=== PATIENT | male | born 1975 | race Caucasian/White ===

== ENCOUNTER 2018-11-23 10:27 | Observation (INO) | payer OTHER, SELFPAY ==
[2018-11-23 10:27] VITALS: BP 142/83; PULSE 72; RESP 16; TEMP 36.3; O2SAT 95; BMI 28.0
--- NOTE | 2018-11-23 10:43 | EKG12_ITS ---
Test Reason : DIZZINESS Blood Pressure : / mmHG Vent. Rate : 062 BPM Atrial Rate : 062 BPM P-R Int : 188 ms QRS Dur : 094 ms QT Int : 392 ms P-R-T Axes : 032 030 011 degrees QTc Int : 397 ms Normal sinus rhythm Normal ECG Confirmed by ANI VIDALES, YADI ([id number]), scientific editor MATILDA SOW ([id number]) on 11/25/2018 9:16:07 AM Referred By: VICKY Confirmed By:YADI LAW MD
--- NOTE | 2018-11-23 10:43 | CT_ITS ---
STUDY: CT BRAIN WITHOUT CONTRAST REASON FOR EXAM: Male, 42 years old. HEADACHE,HTN AND CONFUSION. RADIATION DOSAGE (If Supplied By Facility): CTDIvol = ( 44.99 ) mGy, DLP = ( 796.11 ) mGycm TECHNIQUE: Transaxial CT imaging of the brain was performed without administration of intravenous contrast material. Individualized dose optimization techniques were used for this CT. COMPARISON: No relevant priors. FINDINGS: Normal soft tissue structures. Normal calvarium. Normal size ventricles and extra-axial spaces for the patient's age. Normal white matter tracts of the cerebral hemispheres. Normal basal ganglia and thalami. Normal brainstem. Normal cerebellum. There is no intracranial hemorrhage. There are no findings of an acute ischemic infarction. Right maxillary mucous retention cyst is noted. CT/Brain/Head without Contrast IMPRESSION: No acute intracranial abnormality. Electronically Signed: Raulito Selby MD at 12:21 EDT Tel , Service support ,
--- NOTE | 2018-11-23 10:43 | RAD_ITS ---
STUDY: X-RAY CHEST REASON FOR EXAM: Male, 42 years old. Chest pain. TECHNIQUE: Single AP portable view of the chest. COMPARISON: None. FINDINGS: The lungs are clear and expanded. There is no demonstrated pleural abnormality. Normal size heart. Normal mediastinum and sury. Normal visualized pulmonary arteries. Normal visualized aortic arch and descending thoracic aorta. Normal visualized thoracic spine. Normal visualized ribs, clavicles, and shoulders. There is no demonstrated abnormality of the visualized soft tissue structures of the upper abdomen. RAD/Chest 1 View (Portable) IMPRESSION: Normal x-ray examination of the chest. Electronically Signed: Kris Cali, at 11:13 EDT , Service support ,
--- NOTE | 2018-11-23 10:47 | NURSING ---
NO OLD EKGS
[2018-11-23 11:35] LABS: Absolute Lymphocyte Count 1.22 X10^3/ul (0.83-4.51); Absolute Neutrophil Count 12.3 X10^3/uL (2.0-7.7); Basophil# 0.04 X10^3/uL; Basophil% 0.3 % (0-1); Eosinophil# 0.01 X10^3/uL; Eosinophils% 0.1 % (0-5); Hematocrit 44.6 % (40-54); Hemoglobin 14.5 g/dl (13.0-16.5); Lymphocyte # 1.22 X10^3/ul (4.0); Lymphocyte % 8.6 % (19-41); Mean Corp Hgb Conc 32.5 g/gl (32-36); Mean Corpuscular Hgb 28.9 pg (27.0-32.0); Mean Corpuscular Volume 88.8 fL (80-94); Mean Platelet Vol. 10.9 fl (6.2-12.0); Monocyte# 0.61 X10^3/uL; Monocyte% 4.3 % (0-10); Neutrophil # 12.26 X10^3/uL (2.7-7.7); Neutrophil % 86.3 % (47-70); Platelet Count 244 K/mm3 (150-450); RBC Distribution Width CV 13.8 % (11.6-14.6); RBC Distribution Width SD 44.8 fl (35.1-43.9); Red Blood Count 5.02 M/mm3 (4.6-6.2); White Blood Count 14.2 K/mm3 (4.4-11.0)
[2018-11-23] MEDS: 0.9% Normal Saline 1,000 ML 150 ML IV (11:35)
[2018-11-23 11:37] LABS: POSITIVE COUNT NO; POSITIVE DIFFERENTIAL NO; POSITIVE MORPHOLOGY NO
[2018-11-23 11:50] LABS: Anion Gap 9 (5-15); BUN 16 mg/dL (7-18); BUN/Creat Ratio 16.7 RATIO (10-20); Calcium,Total 8.9 mg/dL (8.5-10.1); Chloride 107 mmol/L (98-107); Creatinine, Serum 0.96 mg/dL (0.70-1.30); EST Glomerular Filtration Rate 91 mL/min (>60); Est Glom Filt Rate - Afr Amer 110 mL/min (>60); Estimated Creatinine Clearance 100.24 ml/min; Glucose 120 mg/dL (74-106); Potassium 4.5 mmol/L (3.5-5.1); Sodium Level 142 mmol/L (136-145)
--- NOTE | 2018-11-23 12:50 | ED.VISSUMM ---
- ER Visit Summary Date of Service: 11/23/18 Chief Complaint: [Hypertension and chest pain] History of Present Illness: The patient is a 42 M [presents the emergency department complaint of elevated blood pressure in the last 3 or 4 days. Patient states his systolic has been over 200 at home. Patient was seen by nurse practitioner in primary care physician's office today and referred to the emergency department. Patient describes chest tightness at times radiating into the shoulder. He denies any significant shortness of breath. He denies any diaphoresis or nausea. Patient has been under increased stress of late and is currently in the court custody hearing for his granddaughter. Patient does feel somewhat shaky. Complains of a headache. Patient states that he has daily headaches and takes aspirin for them. Patient is taken several aspirin today. He describes his chest pressure is a 3 or 4 out of 10 currently. Patient has significant family history of heart disease and that his father had an MA in his late 30s.] Physical Examination: [HEENT-PERRLA, EOMI. Cranial nerves II through XII grossly intact. TMs clear. Mucous membranes moist. No adenopathy. Cardiovascular-regular rate and rhythm without murmur or ectopy Lungs-clear to auscultation, chest wall stable without crepitus or subcu emphysema Abdomen-normoactive bowel sounds, soft, nontender, no rebound or rigidity, no peritoneal signs. Extremities-intact ?4, normal range of motion, normal pulses, atraumatic] Test Results: [EKG obtained arrival shows sinus rhythm with a ventricular rate of 62 bpm with no acute I segment changes. CBC with differential showed a white count of 14.2, hemoglobin 14, hematocrit 44, placed 244. Chemistries unremarkable. Troponin is less than 0.015. Chest x-ray was normal. CT scan of the brain without contrast was normal.] Emergency Department Course and Treatment: [Patient received normal saline he had already taken aspirin at home. Initiate ordered some Ativan but patient refused. I did order sublingual nitro which is currently pending being given by nurse.] Treatment Plan: [Admit for further workup and evaluation of his chest discomfort and hypertension.] Disposition: [Admit] Impression: [Chest pain-rule out acute coronary syndrome Hypertension] This note was generated with [employer] software. It may contain incorrect words, spelling, and punctuation that were not noted in review of the chart prior to signing ED Disposition - Plan for ED Patient: Referrals: Kalia Frias MD [Primary Care Provider] -
--- NOTE | 2018-11-23 12:53 | ED.DCSUM_ITS ---
- ER Visit Summary Date of Service: 11/23/18 Chief Complaint: [Hypertension and chest pain] History of Present Illness: The patient is a 42 M [presents the emergency department complaint of elevated blood pressure in the last 3 or 4 days. Patient states his systolic has been over 200 at home. Patient was seen by nurse practitioner in primary care physician's office today and referred to the emergency department. Patient describes chest tightness at times radiating into the shoulder. He denies any significant shortness of breath. He denies any diaphoresis or nausea. Patient has been under increased stress of late and is currently in the court custody hearing for his granddaughter. Patient does feel somewhat shaky. Complains of a headache. Patient states that he has daily headaches and takes aspirin for them. Patient is taken several aspirin today. He describes his chest pressure is a 3 or 4 out of 10 currently. Patient has significant family history of heart disease and that his father had an AL in his late 30s.] Physical Examination: [HEENT-PERRLA, EOMI. Cranial nerves II through XII grossly intact. TMs clear. Mucous membranes moist. No adenopathy. Cardiovascular-regular rate and rhythm without murmur or ectopy Lungs-clear to auscultation, chest wall stable without crepitus or subcu emphysema Abdomen-normoactive bowel sounds, soft, nontender, no rebound or rigidity, no peritoneal signs. Extremities-intact ?4, normal range of motion, normal pulses, atraumatic] Test Results: [EKG obtained arrival shows sinus rhythm with a ventricular rate of 62 bpm with no acute I segment changes. CBC with differential showed a white count of 14.2, hemoglobin 14, hematocrit 44, placed 244. Chemistries unremarkable. Troponin is less than 0.015. Chest x-ray was normal. CT scan of the brain without contrast was normal.] Emergency Department Course and Treatment: [Patient received normal saline he had already taken aspirin at home. Initiate ordered some Ativan but patient refused. I did order sublingual nitro which is currently pending being given by nurse.] Treatment Plan: [Admit for further workup and evaluation of his chest discomfort and hypertension.] Disposition: [Admit] Impression: [Chest pain-rule out acute coronary syndrome Hypertension] This note was generated with [employer] software. It may contain incorrect words, spelling, and punctuation that were not noted in review of the chart prior to signing ED Disposition - Plan for ED Patient: Referrals: Kalia Frias MD [Primary Care Provider] -
--- NOTE | 2018-11-23 13:00 | NURSING ---
MAYRAU OBS GUNNAR PATINO
[2018-11-23 13:46] VITALS: PULSE 81; RESP 20; O2SAT 94
[2018-11-23 15:28] VITALS: BMI 27.8
[2018-11-23 15:29] VITALS: BMI 27.8
[2018-11-23 15:31] VITALS: BP 148/80; PULSE 74; RESP 16; TEMP 37.2; O2SAT 93
--- NOTE | 2018-11-23 15:36 | PCM.HP.STD ---
Problem List (1) HTN (hypertension) Status: Chronic (2) Asthma Status: Chronic History of Present Illness Date of Admission: 11/23/18 Chief Complaint: Chest pain. The patient is a 42 year old M who presents to the Emergency Room due to chest pain. He reports chest pain began this morning and describes a chest tightness across his chest and into his left shoulder. Denies other pain radiation. Denies associated shortness of breath. Denies nausea. Complains of diaphoresis. He reports chest pain continued intermittently for approximately 2 hours. Denies history of heart disease or prior stress test/cardiac workup. He does report his father has a history of heart disease including heart attack and stents. He has a past medical history of asthma, hypertension. He does report he has been under increased stress recently due to family issues. Past Medical History Past Medical History (Chronic Problems): Chronic Problems HTN (hypertension) (Chronic) Asthma (Chronic) Allergies Iodinated Contrast- Oral and IV Dye [DYEE] Allergy (Verified 11/23/18 10:29) Anaphylaxis Home Medications: Ambulatory Orders Medication Instructions Recorded Amlodipine [Norvasc] 10 mg PO DAILY 12/31/15 Montelukast [Singulair] 10 mg PO DAILY PRN 01/10/16 Omeprazole [Prilosec] 10 mg PO DAILY 01/10/16 Albuterol IH (ProAir) [Proair Hfa] 1 puff INHALATION PRN PRN 11/23/18 Cetirizine HCl [Zyrtec] 10 mg PO DAILY 11/23/18 Lisinopril 20 mg PO DAILY 11/23/18 Surgical History: - - Left foot surgery, deviated septum repair. Psychiatric History: No pertinent psych hx Lives: Spouse/ Significant Other Smoking Status: Never smoker Tobacco Use: Non-smoker Alcohol: Occasional Drugs: None - *Family History Paternal History Items: Heart Disease Maternal History Items: - - Denies known maternal cardiac history medical history./ Review of Systems Constitutional: Denies: Chills, Fever, Weight Change HEENT: Denies: Head Aches, Sinus Congestion, Sinus Drainage Cardiovascular: Reports: Chest Pain Respiratory: Denies: Cough, Shortness of breath at rest, Sputum production Gastrointestinal: Denies: Abdominal Pain, Nausea, Vomiting Genitourinary: Denies: Dysuria Musculoskeletal: Denies: Joint Pain, Joint Tenderness Skin: Denies: Rash, Wounds Neurological: Denies: Numbness, Tingling, Focal weakness Psychiatric: Denies: Anxiety, Depression, Homicidal Ideations, Suicidal Ideations Hematologic/ Lymphatic: Denies: Easy Bruising, Easy Bleeding VTE Information - Inpt Only VTE Present on Admission: No VTE Mechan Device Prophylaxis: None Reason prophylaxis not ordered:: Treatment Not Indicated - Physical Exam General: Alert, Oriented x3, Cooperative HEENT: Atraumatic, PERRLA, EOMI, Normocephalic Neck: Supple, No JVD, Negative Carotid Bruits Lungs: Clear to auscultation, Normal air movement Cardiovascular: Regular rate, Regular Rhythm, Normal S1, Normal S2, No murmurs Abdomen: Bowel Sounds Present, Soft, Non Tender, Non-Distended Extremities: No clubbing, No cyanosis, No edema, Capillary Refill Less than 3 Seconds Skin: No rashes, No breakdown Musculoskeletal: No Tenderness to Palpation of Joints or Extremities Neurological: Cranial nerves II-XII grossly intact, Neuro grossly intact Psych/Mental Status: Normal Affect, Appropriate Vital Signs Temp Pulse Resp BP Pulse Ox 98.9 F 74 16 148/80 H 93 11/23/18 15:31 11/23/18 15:31 11/23/18 15:31 11/23/18 15:31 11/23/18 15:31 Oxygen Delivery Method Room Air Weight: 188 lb 7.924 oz Body Mass Index (BMI) 27.8 Laboratory Tests Past 24 Hrs 11/23/18 11/23/18 11/23/18 11:15 11:15 14:55 WBC 14.2 H RBC 5.02 Hgb 14.5 Hct 44.6 MCV 88.8 MCH 28.9 MCHC 32.5 RDW 13.8 RDW Differential 44.8 H Plt Count 244 MPV 10.9 Immature Gran % (Auto) 0.400 Neut % (Auto) 86.3 H Lymph % (Auto) 8.6 L Alfalfa % (Auto) 4.3 Eos % (Auto) 0.1 Baso % (Auto) 0.3 Absolute Neuts (auto) 12.3 H Absolute Lymphs (auto) 1.22 Total Counted Not Reportable Sodium 142 Potassium 4.5 Chloride 107 Carbon Dioxide 26.0 Anion Gap 9 BUN 16 Creatinine 0.96 Estim Creat Clear Calc 100.24 Est GFR (MDRD) Af Amer 110 Est GFR (MDRD) Non-Af 91 BUN/Creatinine Ratio 16.7 Glucose 120 H Calcium 8.9 Troponin I < 0.015 < 0.015 Assessment/Plan 1. Chest pain, rule out ACS-EKG without ST-T changes. Troponin negative x2. Trend enzymes. Stress test in a.m. 2. Hypertension-stable, continue home lisinopril, amlodipine regimen. 3. Mild intermittent asthma-no acute exacerbation. 4. GERD- continue PPI. DVT prophylaxis-not indicated, low risk. This patient was seen by SARAH Orourke under the supervision of Dr. Hawley.
[2018-11-23 18:21] VITALS: PULSE 82
[2018-11-23 21:30] VITALS: BP 130/77; PULSE 65; RESP 16; TEMP 36.7; O2SAT 95
[2018-11-23 22:00] VITALS: BP 130/77; PULSE 65; PULSE 68; RESP 16; TEMP 36.7; O2SAT 95
[2018-11-24] VITALS (11 sets, daily range): BP systolic 118–139; BP diastolic 68–82; PULSE 57–88; RESP 16–18; TEMP 36.6–36.8; O2SAT 93–97
--- NOTE | 2018-11-24 01:54 | EKG12_ITS ---
Test Reason : Blood Pressure : / mmHG Vent. Rate : 062 BPM Atrial Rate : 062 BPM P-R Int : 200 ms QRS Dur : 092 ms QT Int : 398 ms P-R-T Axes : 061 048 008 degrees QTc Int : 403 ms Normal sinus rhythm with sinus arrhythmia Normal ECG When compared with ECG of 23-NOV-2018 15:32, MANUAL COMPARISON REQUIRED, DATA IS UNCONFIRMED Confirmed by ANI VIDALES, YADI ([id number]), associate entertainment editor MATILDA SOW ([id number]) on 11/25/2018 9:40:38 AM Referred By: Confirmed By:YADI LAW MD
[2018-11-24] MEDS: Lisinopril 20 MG Tablet PO (06:17)
[2018-11-24 06:22] LABS: Absolute Lymphocyte Count 2.02 X10^3/ul (0.83-4.51); Absolute Neutrophil Count 5.8 X10^3/uL (2.0-7.7); Basophil# 0.02 X10^3/uL; Basophil% 0.2 % (0-1); Eosinophil# 0.08 X10^3/uL; Eosinophils% 0.9 % (0-5); Hematocrit 42.7 % (40-54); Hemoglobin 13.8 g/dl (13.0-16.5); Lymphocyte # 2.02 X10^3/ul (4.0); Lymphocyte % 22.9 % (19-41); Mean Corp Hgb Conc 32.3 g/gl (32-36); Mean Corpuscular Hgb 28.3 pg (27.0-32.0); Mean Corpuscular Volume 87.5 fL (80-94); Mean Platelet Vol. 11.1 fl (6.2-12.0); Monocyte# 0.87 X10^3/uL; Monocyte% 9.8 % (0-10); Neutrophil # 5.82 X10^3/uL (2.7-7.7); Neutrophil % 65.9 % (47-70); Platelet Count 237 K/mm3 (150-450); RBC Distribution Width CV 13.8 % (11.6-14.6); RBC Distribution Width SD 43.9 fl (35.1-43.9); Red Blood Count 4.88 M/mm3 (4.6-6.2); White Blood Count 8.8 K/mm3 (4.4-11.0)
[2018-11-24 06:24] LABS: POSITIVE COUNT NO; POSITIVE DIFFERENTIAL NO; POSITIVE MORPHOLOGY NO
[2018-11-24 06:31] LABS: Prothrombin Time (Protime)PT. 13.4 SECONDS (11.7-14.9)
[2018-11-24 06:36] LABS: Partial Thromboplast Time 29.7 Seconds (24.1-36.2)
[2018-11-24 06:44] LABS: Anion Gap 5 (5-15); BUN 16 mg/dL (7-18); BUN/Creat Ratio 16.7 RATIO (10-20); Calcium,Total 8.9 mg/dL (8.5-10.1); Chloride 108 mmol/L (98-107); Creatinine, Serum 0.96 mg/dL (0.70-1.30); EST Glomerular Filtration Rate 91 mL/min (>60); Est Glom Filt Rate - Afr Amer 111 mL/min (>60); Estimated Creatinine Clearance 100.24 ml/min; Glucose 101 mg/dL (74-106); Potassium 3.7 mmol/L (3.5-5.1); Sodium Level 139 mmol/L (136-145)
--- NOTE | 2018-11-24 11:20 | DCINST_ITS ---
- Discharge Diagnoses Current Active Problems: Current Active and Chronic Problems HTN (hypertension) (Chronic) Asthma (Chronic) You will use the following diet at home:: Cardiac Discharge Activity: Return to Normal Activity Call your doctor if you observe: Shortness of breath, Dizziness, Fainting spells, Chest pain Allergies/Adverse Reactions: Allergies Iodinated Contrast- Oral and IV Dye [DYEE] Allergy (Verified 11/23/18 10:29) Anaphylaxis Medications to take at Discharge Amlodipine [Norvasc] 10 mg PO DAILY 12/31/15 Montelukast [Singulair] 10 mg PO DAILY 01/10/16 Omeprazole [Prilosec] 10 mg PO DAILY 01/10/16 Albuterol IH (ProAir) [Proair Hfa] 1 puff INHALATION PRN PRN 11/23/18 Cetirizine HCl [Zyrtec] 10 mg PO DAILY 11/23/18 Lisinopril 20 mg PO DAILY 11/23/18 Primary Care Physician: Kalia Frias MD [Primary Care Provider] - Please follow up with your Primary Care Physician in: 1 Week Test Results: Test results from this visit will be discussed in further detail at your follow- up appointment, if applicable. Proposed Discharge Date: 11/24/18
[2018-11-24] MEDS: Pantoprazole Sodium 20 MG Tablet PO (12:19)
[2018-11-24] MEDS: amLODIPine 10 MG Tablet PO (12:19)
--- NOTE | 2018-11-24 12:19 | NURSING ---
pt returned from stress lab at this time
--- NOTE | 2018-11-24 12:25 | MRI_ITS ---
We are attempting to reach Colt Hawley to discuss findings. An addendum with communication details will be sent when the communication is complete. STUDY: MRI BRAIN WITHOUT CONTRAST REASON FOR EXAM: Male, 42 years old. Word finding difficulty, facial droop TECHNIQUE: Standardized multiplanar fat and water weighted pulse sequences were obtained. COMPARISON: CT head 11/23/2018. FINDINGS: There is a faint region of restricted diffusion in the medial left temporal lobe with corresponding mild FLAIR signal hyperintensity. Normal size of the ventricles and extra-axial spaces for the patient's age. Normal white matter tracts of the supratentorial brain. Normal bilateral basal ganglia. Normal thalami. There is no extra-axial fluid accumulation. Normal flow voids within the major intracranial circulation suggesting patency by spin echo criteria. Normal sella turcica, pituitary gland, infundibular stalk, optic chiasm and hypothalamus. Normal tectal plate and pineal gland. Normal midbrain, letitia and medulla. Normal cerebellum. Normal basal cisterns. Normal bilateral temporal bones. Normal bilateral internal auditory canals. No demonstrated orbital abnormality, within the constraints of a routine brain study. There is a 2.3 x 1.6 cm right maxillary sinus retention cyst and mild right maxillary mucosal thickening.. Normal calvarium and skull base. Normal visualized soft tissue structures. Normal visualized upper cervical spine. MRI/Brain without Contrast IMPRESSION: A faint region of restricted diffusion in the medial left temporal lobe may represent small late acute infarct corresponding to the left BRONZER territory. Electronically Signed: Vicki Griselda, at 14:27 EDT Tel , Service support ,
--- NOTE | 2018-11-24 14:49 | PCM.PROGNOTE ---
Subjective: Patient seen and examined. Denies further chest pain. Patient reports his brain feels foggy. He reports prior to admission he had lower lip tingling and difficulty getting his words out. He did not mention this during previous assessments. - Physical Exam General: Alert, Oriented x3, Cooperative HEENT: Atraumatic, PERRLA, EOMI, Normocephalic Neck: Supple, No JVD, Negative Carotid Bruits Lungs: Clear to auscultation, Normal air movement Cardiovascular: Regular rate, Regular Rhythm, Normal S1, Normal S2, No murmurs Abdomen: Bowel Sounds Present, Soft, Non Tender, Non-Distended Extremities: No clubbing, No cyanosis, No edema, Capillary Refill Less than 3 Seconds Skin: No rashes, No breakdown Musculoskeletal: No Tenderness to Palpation of Joints or Extremities Neurological: Cranial nerves II-XII grossly intact, Neuro grossly intact Psych/Mental Status: Normal Affect, Appropriate Vital Signs Temp Pulse Resp BP Pulse Ox 98 F 86 18 118/78 96 11/24/18 12:17 11/24/18 12:17 11/24/18 12:17 11/24/18 12:17 11/24/18 12:17 Oxygen Delivery Method Room Air Weight: 188 lb 7.924 oz Body Mass Index (BMI) 27.8 Intake and Output for Last 24 Hours 11/22/18 11/23/18 11/24/18 23:59 23:59 23:59 Intake Total 240 / 240 240 / 240 Balance 240 / 240 240 / 240 Laboratory Tests Past 24 Hrs 11/23/18 11/23/18 11/24/18 14:55 17:28 06:02 WBC 8.8 RBC 4.88 Hgb 13.8 Hct 42.7 MCV 87.5 MCH 28.3 MCHC 32.3 RDW 13.8 RDW Differential 43.9 Plt Count 237 MPV 11.1 Immature Gran % (Auto) 0.300 Neut % (Auto) 65.9 Lymph % (Auto) 22.9 [place] % (Auto) 9.8 Eos % (Auto) 0.9 Baso % (Auto) 0.2 Absolute Neuts (auto) 5.8 Absolute Lymphs (auto) 2.02 Total Counted Not Reportable PT INR APTT Sodium Potassium Chloride Carbon Dioxide Anion Gap BUN Creatinine Estim Creat Clear Calc Est GFR (MDRD) Af Amer Est GFR (MDRD) Non-Af BUN/Creatinine Ratio Glucose Calcium Troponin I < 0.015 < 0.015 11/24/18 11/24/18 06:02 06:02 WBC RBC Hgb Hct MCV MCH MCHC RDW RDW Differential Plt Count MPV Immature Gran % (Auto) Neut % (Auto) Lymph % (Auto) [place] % (Auto) Eos % (Auto) Baso % (Auto) Absolute Neuts (auto) Absolute Lymphs (auto) Total Counted PT 13.4 INR 1.0 APTT 29.7 Sodium 139 Potassium 3.7 Chloride 108 H Carbon Dioxide 26.0 Anion Gap 5 BUN 16 Creatinine 0.96 Estim Creat Clear Calc 100.24 Est GFR (MDRD) Af Amer 111 Est GFR (MDRD) Non-Af 91 BUN/Creatinine Ratio 16.7 Glucose 101 Calcium 8.9 Troponin I Medical Necessity - Tobacco Use Smoking Status: Never smoker Tobacco Use: Non-smoker Assessment/Plan 1. Chest pain, ACS ruled out-EKG without ST-T changes. Troponin negative. Patient underwent nuclear stress test which was negative for ischemia. 2. R/O CVA-patient prior to discharge reported brain fog, difficulty getting his words out and lower lip tingling. She reports these resolved prior to admission however still feels like his head does not feel right. Brain CT negative. 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 Neurology consulted. Initiate stroke measures pending neuro eval. 3. Hypertension-stable, continue home lisinopril, amlodipine regimen. 4. Mild intermittent asthma-no acute exacerbation. 5. GERD- continue PPI. DVT prophylaxis-not indicated, low risk. This patient was seen by SARAH Orourke under the supervision of Dr. Hawley.
--- NOTE | 2018-11-24 16:06 | CON.PCM_ITS ---
Reason for Consult Date of Consultation: 11/24/18 Reason for Consultation: right sided shaking History of Present Illness: The patient is a 42 year old right handed white male presents after having an episode of right sided shaking now improved, associated with language abnormality. had stressful situation yesterday, no other issues, no recent med changes, no history of brain injury or family history of sz. mom at bedside reports normal and development. no tongue biting or incontinence. eeg in process. Past Medical History Past Medical History (Chronic Problems): Chronic Problems HTN (hypertension) (Chronic) Asthma (Chronic) Allergies Iodinated Contrast- Oral and IV Dye [DYEE] Allergy (Verified 11/23/18 10:29) Anaphylaxis Home Medications: Ambulatory Orders Medication Instructions Recorded Amlodipine [Norvasc] 10 mg PO DAILY 12/31/15 Montelukast [Singulair] 10 mg PO DAILY 01/10/16 Omeprazole [Prilosec] 10 mg PO DAILY 01/10/16 Albuterol IH (ProAir) [Proair Hfa] 1 puff INHALATION PRN PRN 11/23/18 Cetirizine HCl [Zyrtec] 10 mg PO DAILY 11/23/18 Lisinopril 20 mg PO DAILY 11/23/18 Surgical History: - - Left foot surgery, deviated septum repair. Psychiatric History: No pertinent psych hx Lives: Spouse/ Significant Other Smoking Status: Never smoker Tobacco Use: Non-smoker Alcohol: Occasional Drugs: None - *Family History Paternal History Items: Heart Disease Maternal History Items: - - Denies known maternal cardiac history medical history./ Review of Systems Constitutional: Denies: Chills, Fever, Weight Change HEENT: Denies: Head Aches, Sinus Congestion, Sinus Drainage Cardiovascular: Denies: Chest Pain, Palpitations Respiratory: Denies: Cough, Shortness of breath at rest, Sputum production Gastrointestinal: Denies: Abdominal Pain, Nausea, Vomiting Genitourinary: Denies: Dysuria Musculoskeletal: Denies: Joint Pain, Joint Tenderness Skin: Denies: Rash, Wounds Neurological: Denies: Numbness, Tingling, Focal weakness Psychiatric: Denies: Anxiety, Depression, Homicidal Ideations, Suicidal Idea tions Hematologic/ Lymphatic: Denies: Easy Bruising, Easy Bleeding - Physical Exam General: Alert, Oriented x3, Cooperative, No apparent distress HEENT: PERRLA, EOMI Neurological: Cranial nerves II-XII grossly intact, Deep Tendon Reflexes 2+/4 and Symmetrical, Neuro grossly intact, Motor Exam 5/5 strength throughout, Muscle tone normal, Sensory exam intact to light touch and pain, Coordination normal Psych/Mental Status: Normal Affect, Alert and oriented to time, place, person, mood and affect Vital Signs Temp Pulse Resp BP Pulse Ox 36.6 C 88 18 118/78 96 11/24/18 12:17 11/24/18 15:41 11/24/18 12:17 11/24/18 12:17 11/24/18 12:17 Oxygen Delivery Method Room Air Weight: 85.5 kg Body Mass Index (BMI) 27.8 Intake and Output for Last 24 Hours 11/22/18 11/23/18 11/24/18 23:59 23:59 23:59 Intake Total 240 / 240 240 / 240 Balance 240 / 240 240 / 240 Laboratory Tests Past 24 Hrs 11/23/18 11/24/18 11/24/18 17:28 06:02 06:02 WBC 8.8 RBC 4.88 Hgb 13.8 Hct 42.7 MCV 87.5 MCH 28.3 MCHC 32.3 RDW 13.8 RDW Differential 43.9 Plt Count 237 MPV 11.1 Immature Gran % (Auto) 0.300 Neut % (Auto) 65.9 Lymph % (Auto) 22.9 [place] % (Auto) 9.8 Eos % (Auto) 0.9 Baso % (Auto) 0.2 Absolute Neuts (auto) 5.8 Absolute Lymphs (auto) 2.02 Total Counted Not Reportable PT 13.4 INR 1.0 APTT 29.7 Sodium Potassium Chloride Carbon Dioxide Anion Gap BUN Creatinine Estim Creat Clear Calc Est GFR (MDRD) Af Amer Est GFR (MDRD) Non-Af BUN/Creatinine Ratio Glucose Calcium Troponin I < 0.015 11/24/18 06:02 WBC RBC Hgb Hct MCV MCH MCHC RDW RDW Differential Plt Count MPV Immature Gran % (Auto) Neut % (Auto) Lymph % (Auto) [place] % (Auto) Eos % (Auto) Baso % (Auto) Absolute Neuts (auto) Absolute Lymphs (auto) Total Counted PT INR APTT Sodium 139 Potassium 3.7 Chloride 108 H Carbon Dioxide 26.0 Anion Gap 5 BUN 16 Creatinine 0.96 Estim Creat Clear Calc 100.24 Est GFR (MDRD) Af Amer 111 Est GFR (MDRD) Non-Af 91 BUN/Creatinine Ratio 16.7 Glucose 101 Calcium 8.9 Troponin I mri reviewed, has subtle high signal medial left temporal lobe Assessment/Plan possible sz: eeg consider aed pending result of eeg followup mri 2 weeks
[2018-11-24] MEDS: Acetaminophen 325 MG Tablet 650 MG PO (19:12)
--- NOTE | 2018-11-24 19:21 | STRESSREP ---
Stress Test Report Myocardial perfusion stress test. 42-year-old man with a history of chest pain. Medications: Norvasc, lisinopril. Stress protocol: Resting EKG demonstrates normal sinus rhythm with a rate of 68 beats minute normal intervals are noted resting blood pressure 132/82 mmHg. The patient exercised according to regular Eloy protocol for total duration of 10 minutes and 30 seconds. The maximum heart rate attained was 171 bpm which was 96% of maximum predicted heart rate the maximum workload was 12.5 metabolic equivalents. At rest there were no ST or T wave changes noted suggest ischemia peak exercise upsloping ST changes only were noted with no meet the criteria for ischemia. No clinical angina was noted. The test was terminated due to leg fatigue. The resting blood pressure 132/82 with a peak blood pressure 184/80 mmHg rate pressure product was 27,200. Myocardial perfusion protocol. 10.8 mCi of technetium 99m sestamibi was injected at rest. The patient exercised according to regular Eloy protocol peak exercise 33.0 mCi of technetium 99m sestamibi was injected stress images were obtained stress and rest images were reconstructed and compared in the short axis vertical long horizontal long axis. Gated images were also obtained Perfusion SPECT analysis: Review of the stress images demonstrate normal uptake of tracer noted in all areas of myocardium. The resting images similarly demonstrate normal uptake of tracer noted in all areas of myocardium. The gated ejection fraction is noted to be 70%. Conclusion: Normal exercise myocardial perfusion stress test at a high workload. Preserved ejection fraction.
[2018-11-24] MEDS: levETIRAcetam 500 MG Tablet PO (21:15)
[2018-11-25 03:06] VITALS: PULSE 86
[2018-11-25 03:08] VITALS: BP 105/59; PULSE 85; RESP 16; TEMP 36.6; O2SAT 100
[2018-11-25 07:06] VITALS: PULSE 68
[2018-11-25] MEDS: Lisinopril 20 MG Tablet PO (08:57)
[2018-11-25] MEDS: levETIRAcetam 500 MG Tablet PO (08:57)
[2018-11-25] MEDS: amLODIPine 10 MG Tablet PO (08:57)
[2018-11-25] MEDS: Pantoprazole Sodium 20 MG Tablet PO (08:57)
[2018-11-25 09:08] VITALS: BP 132/83; PULSE 75; RESP 16; TEMP 36.8; O2SAT 97
--- NOTE | 2018-11-25 11:32 | PCM.PN.NEU ---
Subjective: improved but still mild fatigue, able to ambulate to bathroom today and performed adls without difficulty. - Physical Exam General: Alert, Oriented x3, Cooperative, No apparent distress HEENT: LAURA, EOMI Neurological: Cranial nerves II-XII grossly intact Psych/Mental Status: Normal Affect, Alert and oriented to time, place, person, mood and affect Vital Signs Temp Pulse Resp BP Pulse Ox 36.8 C 75 16 132/83 H 97 11/25/18 09:08 11/25/18 09:08 11/25/18 09:08 11/25/18 09:08 11/25/18 09:08 Oxygen Delivery Method Room Air Weight: 85.5 kg Body Mass Index (BMI) 27.8 Intake and Output for Last 24 Hours 11/23/18 11/24/18 11/25/18 23:59 23:59 23:59 Intake Total 240 / 240 720 / 720 Balance 240 / 240 720 / 720 Current Medications Generic Name Dose Route Start Last Admin Trade Name Freq PRN Reason Stop Dose Admin Acetaminophen 650 mg 11/23/18 15:51 11/24/18 19:12 Tylenol PO 650 mg Q6H PRN PRN Administration Mild Pain (1-3)/Temp > 100.7 F Amlodipine Besylate 10 mg 11/24/18 10:00 11/25/18 08:57 Norvasc PO 10 mg DAILY PATTI Administration Levetiracetam 500 mg 11/24/18 22:00 11/25/18 08:57 Keppra Tablet PO 500 mg BID PATTI Administration Lisinopril 20 mg 11/24/18 10:00 11/25/18 08:57 Zestril PO 20 mg DAILY PATTI Administration Nitroglycerin 0.4 mg 11/23/18 12:49 Nitrostat SUBLINGUAL Q5M PRN CARDIAC/CHEST PAIN Ondansetron HCl 4 mg 11/23/18 15:51 Zofran IV Q8H PRN PRN NAUSEA Pantoprazole Sodium 20 mg 11/24/18 10:00 11/25/18 08:57 Protonix PO 20 mg DAILY PATTI Administration Sodium Chloride 5 - 15 ml 11/23/18 18:10 IV UD PRN SALINE FLUSH Medical Necessity - Tobacco Use Smoking Status: Never smoker Tobacco Use: Non-smoker Assessment/Plan possible sz: ok to dc keppra 500,g bid f/u op two weeks followup mri 2 weeks
--- NOTE | 2018-11-25 11:50 | DCINST_ITS ---
- Discharge Diagnoses Current Active Problems: Current Active and Chronic Problems HTN (hypertension) (Chronic) Asthma (Chronic) You will use the following diet at home:: No restrictions Your food should be the consistency of: Regular Your liquids should be the consistency of: Regular/Thin Discharge Activity: May Not Drive Weight Bearing Status: Full weight bearing Call your doctor if you observe: Shortness of breath, Dizziness, Fainting spells, Chest pain Allergies/Adverse Reactions: Allergies Iodinated Contrast- Oral and IV Dye [DYEE] Allergy (Verified 11/23/18 10:29) Anaphylaxis Medications to take at Discharge Amlodipine [Norvasc] 10 mg PO DAILY 12/31/15 Montelukast [Singulair] 10 mg PO DAILY 01/10/16 Omeprazole [Prilosec] 10 mg PO DAILY 01/10/16 Albuterol IH (ProAir) [Proair Hfa] 1 puff INHALATION PRN PRN 11/23/18 Cetirizine HCl [Zyrtec] 10 mg PO DAILY 11/23/18 Lisinopril 20 mg PO DAILY 11/23/18 levETIRAcetam tablet [Keppra tablet] 500 mg PO BID #60 tab 11/25/18 The following prescriptions were given: levETIRAcetam tablet [Keppra tablet] 500 mg PO BID #60 tab Primary Care Physician: Kalia Frias MD [Primary Care Provider] - Please follow up with your Primary Care Physician in: 1 Week Test Results: Test results from this visit will be discussed in further detail at your follow- up appointment, if applicable. Please Follow Up With: Humza León MD When: in 2 weeks-call for appointment Proposed Discharge Date: 11/24/18
--- NOTE | 2018-11-25 13:31 | PCM.DC.SUM ---
Discharge Date and Diagnosis Date of Admission: 11/23/18 Date of Discharge: 11/25/18 - Primary Discharge Diagnosis Chest pain - musculoskeletal Possible Seizure HTN Mild intermittent asthma GERD - Secondary Discharge Diagnosis Chronic Problems HTN (hypertension) (Chronic) Asthma (Chronic) Hospital Course and Treatment Imaging Results: CT/Brain/Head without Contrast IMPRESSION: No acute intracranial abnormality. RAD/Chest 1 View (Portable) IMPRESSION: Normal x-ray examination of the chest. MRI/Brain without Contrast IMPRESSION: A faint region of restricted diffusion in the medial left temporal lobe may represent small late acute infarct corresponding to the left CRM COORDINATOR territory. N.B. : The above information has been verbally conveyed by Vicki Villalobos to Colt Hawley MD, on 11/24/2018 14:31:47 (ET). Stress Test: Conclusion: Normal exercise myocardial perfusion stress test at a high workload. Preserved ejection fraction. Consults: Neuro - [place] Operations: None Procedures: Electroencephalogram, Stress test Summary of Care Provided: Hospital course: The patient is a 42 year old M with pmhx as above who presented to the ER with c/o chest pain described as tightness across his chest with radiation to the left shoulder, with some diaphoresis. He also complained of feeling new right upper extremity tremors, difficulty speaking, and lip tingling. CXR, troponin, EKG were negative, CT brain was negative. He was placed in the PCU on tele. Troponin was cycled x3 and negative, the following morning he underwent a stress test which was negative for inducible ischemia. He continued to complain of fogginess, and an MRI was performed. This showed an area of questionable acute infarct. Neurology was consulted. Neurology felt that this was consistent with a seizure more likely than an acute CVA. He was started on Keppra 500 p.o. twice daily. An EEG was obtained, final report is pending at this time. The patient was discharged home in stable condition and will need to follow-up with his PCP in 1-2 weeks. He will need a follow-up MRI in 2 weeks. He will need to follow-up with neurology as directed. He will need to be on seizure precautions including no driving until cleared by his PCP or neurologist. This patient was seen by Cameron Vázquez PA-C under the supervision of Doctor Marleen. [] - Physical Exam General: Alert, Oriented x3, Cooperative HEENT: Atraumatic, PERRLA, EOMI, Normocephalic Neck: Supple, No JVD, Negative Carotid Bruits Lungs: Clear to auscultation, Normal air movement Cardiovascular: Regular rate, No murmurs Abdomen: Bowel Sounds Present, Soft, Non Tender Extremities: No edema, Capillary Refill Less than 3 Seconds Skin: No rashes, No breakdown Musculoskeletal: No Tenderness to Palpation of Joints or Extremities Neurological: Cranial nerves II-XII grossly intact Psych/Mental Status: Normal Affect, Appropriate Vital Signs Temp Pulse Resp BP Pulse Ox 98.2 F 75 16 132/83 H 97 11/25/18 09:08 11/25/18 09:08 11/25/18 09:08 11/25/18 09:08 11/25/18 09:08 Oxygen Delivery Method Room Air Weight: 188 lb 7.924 oz Body Mass Index (BMI) 27.8 Intake and Output for Last 24 Hours 11/23/18 11/24/18 11/25/18 23:59 23:59 23:59 Intake Total 240 / 240 720 / 720 Balance 240 / 240 720 / 720 Discharge Diet: No Restrictions Discharge Activity: May Not Drive Weight Bearing Status: Full weight bearing Call your doctor if you observe: Shortness of breath, Dizziness, Fainting spells, Chest pain Home Medications: Medications to take at Discharge Amlodipine [Norvasc] 10 mg PO DAILY 12/31/15 Montelukast [Singulair] 10 mg PO DAILY 01/10/16 Omeprazole [Prilosec] 10 mg PO DAILY 01/10/16 Albuterol IH (ProAir) [Proair Hfa] 1 puff INHALATION PRN PRN 11/23/18 Cetirizine HCl [Zyrtec] 10 mg PO DAILY 11/23/18 Lisinopril 20 mg PO DAILY 11/23/18 levETIRAcetam tablet [Keppra tablet] 500 mg PO BID #60 tab 11/25/18 Following Prescrptions Were Given to Patient: levETIRAcetam tablet [Keppra tablet] 500 mg PO BID #60 tab Primary Care Physician: Kalia Frias MD [Primary Care Provider] - Please follow up with your Primary Care Physician in: 1 Week Please Follow Up With: Humza León MD When: in 2 weeks-call for appointment Disposition: Home Minutes spent on discharge:: 35 Patient Condition:: Stable Medical Necessity - Tobacco Use Smoking Status: Never smoker Tobacco Use: Non-smoker Meaningful Use Info Meaningful Use Diagnoses (Choose all that apply): None applicable
--- NOTE | 2018-11-25 13:38 | DS.PCM_ITS ---
Discharge Date and Diagnosis Date of Admission: 11/23/18 Date of Discharge: 11/25/18 - Primary Discharge Diagnosis Chest pain - musculoskeletal Possible Seizure HTN Mild intermittent asthma GERD - Secondary Discharge Diagnosis Chronic Problems HTN (hypertension) (Chronic) Asthma (Chronic) Hospital Course and Treatment Imaging Results: CT/Brain/Head without Contrast IMPRESSION: No acute intracranial abnormality. RAD/Chest 1 View (Portable) IMPRESSION: Normal x-ray examination of the chest. 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 N.B. : The above information has been verbally conveyed by Vicki Villalobos to Colt Hawley MD, on 11/24/2018 14:31:47 (ET). Stress Test: Conclusion: Normal exercise myocardial perfusion stress test at a high workload. Preserved ejection fraction. Consults: Neuro - [place] Operations: None Procedures: Electroencephalogram, Stress test Summary of Care Provided: Hospital course: The patient is a 42 year old M with pmhx as above who presented to the ER with c/o chest pain described as tightness across his chest with radiation to the left shoulder, with some diaphoresis. He also complained of feeling new right upper extremity tremors, difficulty speaking, and lip tingling. CXR, troponin, EKG were negative, CT brain was negative. He was placed in the PCU on tele. Troponin was cycled x3 and negative, the following morning he underwent a stress test which was negative for inducible ischemia. He continued to complain of fogginess, and an MRI was performed. This showed an area of questionable acute infarct. Neurology was consulted. Neurology felt that this was consistent with a seizure more likely than an acute CVA. He was started on Keppra 500 p.o. twice daily. An EEG was obtained, final report is pending at this time. The patient was discharged home in stable condition and will need to follow-up with his PCP in 1-2 weeks. He will need a follow-up MRI in 2 weeks. He will need to follow-up with neurology as directed. He will need to be on seizure precautions including no driving until cleared by his PCP or neurologist. This patient was seen by Cameron Vázquez PA-C under the supervision of Doctor Marleen. [] - Physical Exam General: Alert, Oriented x3, Cooperative HEENT: Atraumatic, PERRLA, EOMI, Normocephalic Neck: Supple, No JVD, Negative Carotid Bruits Lungs: Clear to auscultation, Normal air movement Cardiovascular: Regular rate, No murmurs Abdomen: Bowel Sounds Present, Soft, Non Tender Extremities: No edema, Capillary Refill Less than 3 Seconds Skin: No rashes, No breakdown Musculoskeletal: No Tenderness to Palpation of Joints or Extremities Neurological: Cranial nerves II-XII grossly intact Psych/Mental Status: Normal Affect, Appropriate Vital Signs Temp Pulse Resp BP Pulse Ox 98.2 F 75 16 132/83 H 97 11/25/18 09:08 11/25/18 09:08 11/25/18 09:08 11/25/18 09:08 11/25/18 09:08 Oxygen Delivery Method Room Air Weight: 188 lb 7.924 oz Body Mass Index (BMI) 27.8 Intake and Output for Last 24 Hours 11/23/18 11/24/18 11/25/18 23:59 23:59 23:59 Intake Total 240 / 240 720 / 720 Balance 240 / 240 720 / 720 Discharge Diet: No Restrictions Discharge Activity: May Not Drive Weight Bearing Status: Full weight bearing Call your doctor if you observe: Shortness of breath, Dizziness, Fainting spells, Chest pain Home Medications: Medications to take at Discharge Amlodipine [Norvasc] 10 mg PO DAILY 12/31/15 Montelukast [Singulair] 10 mg PO DAILY 01/10/16 Omeprazole [Prilosec] 10 mg PO DAILY 01/10/16 Albuterol IH (ProAir) [Proair Hfa] 1 puff INHALATION PRN PRN 11/23/18 Cetirizine HCl [Zyrtec] 10 mg PO DAILY 11/23/18 Lisinopril 20 mg PO DAILY 11/23/18 levETIRAcetam tablet [Keppra tablet] 500 mg PO BID #60 tab 11/25/18 Following Prescrptions Were Given to Patient: levETIRAcetam tablet [Keppra tablet] 500 mg PO BID #60 tab Primary Care Physician: Kalia Frias MD [Primary Care Provider] - Please follow up with your Primary Care Physician in: 1 Week Please Follow Up With: Humza León MD When: in 2 weeks-call for appointment Disposition: Home Minutes spent on discharge:: 35 Patient Condition:: Stable Medical Necessity - Tobacco Use Smoking Status: Never smoker Tobacco Use: Non-smoker Meaningful Use Info Meaningful Use Diagnoses (Choose all that apply): None applicable
--- NOTE | 2018-11-26 12:16 | EEG ---
- Electroencephalogram This is an 18 channel electroencephalogram performed on this 42-year-old male with shaking and confusion and an abnormal MRI. Background activity demonstrates 8 Hz alpha rhythm in the posterior leads which attenuates with eye-opening. Ablation was performed for 5 minutes with good effort with no lateralizing or epileptiform changes in the post hyperventilatory phase is unremarkable. The patient remained awake throughout the recording. EKG is normal sinus rhythm throughout the recording and photic stimulation generates a normal symmetric driving response to the posterior leads. Impression: Normal awake electroencephalogram
== END 2018-11-25 11:50 | disposition home or self-care (01) ==
LOC: ED 11:30 → PCU 13:34
PROVIDERS: Admitting Provider Internal Medicine; Emergency Provider Emergency Medicine; Family Provider Family Medicine; PCP Family Medicine; Visit Provider Internal Medicine
DX: R07.89 Other chest pain (principal); I10 Essential (primary) hypertension; R51 Headache; Z82.49 Family history of ischemic heart disease and other diseases of the circulatory system; Z79.899 Other long term (current) drug therapy; K21.9 Gastro-esophageal reflux disease without esophagitis; J45.20 Mild intermittent asthma, uncomplicated
CPT/HCPCS: 36415; 70450; 70551; 71045; 78452; 80048; 84484; 85025; 85610; 85730; 93005; 93017; 99218; 99284; A9500; J7030; A4216; G0378

== ENCOUNTER → 2018-12-22 | Outpatient (CLI) | payer OTHER, SELFPAY ==
[2018-11-23 15:28] VITALS: BMI 27.8
--- NOTE | 2018-12-22 07:18 | MRI_ITS ---
STUDY: MRI BRAIN WITHOUT CONTRAST REASON FOR EXAM: Male, 43 years old. Left temporal infarct TECHNIQUE: Standardized multiplanar fat and water weighted pulse sequences were obtained. COMPARISON: Brain MRI 11/24/2018. FINDINGS: Previously seen faint region of restricted diffusion in the medial left temporal lobe on prior exam has resolved consistent with chronic evolution of infarct. There is no restricted diffusion to suggest acute infarct on the current exam. No intracranial hemorrhage. Normal size of the ventricles and extra-axial spaces for the patient's age. Normal white matter tracts of the supratentorial brain. Normal bilateral basal ganglia. Normal thalami. There is no extra-axial fluid accumulation. Normal flow voids within the major intracranial circulation suggesting patency by spin echo criteria. Normal sella turcica, pituitary gland, infundibular stalk, optic chiasm and hypothalamus. Normal tectal plate and pineal gland. Normal midbrain, letitia and medulla. Normal cerebellum. Normal basal cisterns. Normal bilateral temporal bones. Normal bilateral internal auditory canals. No demonstrated orbital abnormality, within the constraints of a routine brain study. There is a right maxillary sinus retention cyst.. Normal calvarium and skull base. Normal visualized soft tissue structures. Normal visualized upper cervical spine. MRI/Brain without Contrast IMPRESSION: Previously seen faint region of restricted diffusion in the medial left temporal lobe on prior exam has resolved. There is no restricted diffusion to suggest acute infarct on the current exam. No intracranial hemorrhage. No acute intracranial abnormality. Electronically Signed: Augustinagibson Villalobos, at 9:27 EDT Tel , Service support ,
== END | disposition home or self-care (01) ==
LOC: MRI 07:16
PROVIDERS: Family Provider Family Medicine; PCP Family Medicine; Referring Provider Psychiatry & Neurology Neurology; Visit Provider Psychiatry & Neurology Neurology
DX: Z86.73 Personal history of transient ischemic attack (TIA), and cerebral infarction without residual deficits (principal); R06.81 Apnea, not elsewhere classified
CPT/HCPCS: 70551

== ENCOUNTER → 2019-01-12 | Outpatient (CLI) | payer OTHER, SELFPAY | END | disposition home or self-care (01) | LOC: SL 21:34 | PROVIDERS: Family Provider Family Medicine; PCP Family Medicine; Referring Provider Psychiatry & Neurology Neurology; Visit Provider Psychiatry & Neurology Neurology | DX: R06.81 Apnea, not elsewhere classified (principal); Z86.73 Personal history of transient ischemic attack (TIA), and cerebral infarction without residual deficits | CPT/HCPCS: 95810 ==

== ENCOUNTER → 2019-03-09 | Outpatient (CLI) | payer OTHER, SELFPAY | END | disposition home or self-care (01) | LOC: SL 20:15 | PROVIDERS: Family Provider Family Medicine; PCP Family Medicine; Referring Provider Psychiatry & Neurology Neurology; Visit Provider Psychiatry & Neurology Neurology | DX: G47.33 Obstructive sleep apnea (adult) (pediatric) (principal) | CPT/HCPCS: 95811 ==

== ENCOUNTER → 2019-04-14 | Outpatient (CLI) | payer OTHER, SELFPAY ==
[2019-04-14 16:17] LABS: Hemoglobin A1c 5.4 % (4.2-6.3)
[2019-04-14 16:22] LABS: Cholesterol 211 mg/dL (200); High Density Lipoprotein 39 mg/dL; Triglycerides 445 mg/dL
== END | disposition home or self-care (01) ==
LOC: LAB.FUTURE 14:26
PROVIDERS: Family Provider Family Medicine; PCP Family Medicine; Referring Provider Nurse Practitioner Family; Visit Provider Nurse Practitioner Family
DX: Z86.73 Personal history of transient ischemic attack (TIA), and cerebral infarction without residual deficits (principal)
CPT/HCPCS: 36415; 80061; 83036

== ENCOUNTER 2020-11-22 09:42 | Outpatient (RCR) | payer OTHER, SELFPAY | END 2021-01-15 23:59 | LOC: IMMUN 09:42 | PROVIDERS: PCP Family Medicine; Referring Provider Family Medicine; Visit Provider Family Medicine | DX: Z23 Encounter for immunization (principal) | CPT/HCPCS: 0001A; 0002A; 91300 ==